=== PATIENT | female | born 1975 | race Caucasian/White ===

== ENCOUNTER 2018-01-11 09:52 | Emergency (ER) | payer OTHER ==
[~2018-01-11] VITALS: Ht 157.5 cm; Wt 53.6 kg
[~2018-01-11 09:52] MED LIST: KLONOPIN 0.5MG0.5 MG PO; MULTIPLE VITAMI1 CAP PO; NORCO 325 MG-51 TAB PO; ZOLOFT 25MG25 MG PO
[2018-01-11 10:09] VITALS: BP 131/66; TEMP 99.1
[2018-01-11] MEDS ORDERED: PREDNISONE20 MG PO (11:32)
[2018-01-11] MEDS ORDERED: ZITHROMAX Z PA250 MG PO (11:32)
[2018-01-11 11:44] VITALS: PULSE 98
== END 2018-01-11 11:49 | disposition home or self-care (01) ==
LOC: COL.ER 09:52
DX: J40 Bronchitis, not specified as acute or chronic (principal); J98.01 Acute bronchospasm; D50.9 Iron deficiency anemia, unspecified; F17.210 Nicotine dependence, cigarettes, uncomplicated; Z79.891 Long term (current) use of opiate analgesic

== ENCOUNTER 2018-02-01 16:21 | Emergency (ER) | payer OTHER ==
[~2018-02-01] VITALS: Ht 157.5 cm; Wt 53.6 kg
[~2018-02-01 16:21] MED LIST changes: +PREDNISONE20 MG PO; +ZITHROMAX Z PA250 MG PO
[2018-02-01 16:36] VITALS: BP 115/59; TEMP 98.8
[2018-02-01 17:34] LABS: BASO % 0.8 % (0.0-2.0); EOS # 0.1 (0.0-0.7); GRAN # 3.4 (1.4-6.5); GRAN % 66.9 % (42.2-75.2); HEMATOCRIT 38.5 % (37.0-47.0); HEMOGLOBIN 12.4 g/dl (12.5-16.0); LYMPH # 1.2 (1.2-3.4); LYMPH % 24.4 % (20.0-51.0); MEAN CELL VOLUME 81 fl (80.0-100.0); MEAN CORPUSCULAR HEMOGLOBIN 26 pg (27.0-31.0); MEAN CORPUSCULAR HGB CONC 32 g/dl (33.0-37.0); MEAN PLATELET VOLUME 9.5 fl (7.4-10.4); MONO # 0.3 (0.1-0.6); MONO % 6.7 % (1.7-9.3); PLATELET COUNT 352 K/mm3 (130-400); RED BLOOD COUNT 4.73 M/mm3 (4.10-5.30)
[2018-02-01 17:46] LABS: COLLECTION METHOD CLEAN CATCH
[2018-02-01 17:46] LABS: ALBUMIN 4.6 gm/dL (3.5-5.0); BILIRUBIN,TOTAL 0.5 mg/dL (0.0-1.0); CALCIUM 9.6 mg/dL (8.4-10.2); CREATININE, serum 0.69 mg/dL (0.52-1.25); POTASSIUM 4.2 mmol/L (3.4-5.0); TOTAL PROTEIN 8.1 gm/dL (6.4-8.2)
[2018-02-01 17:51] LABS: PH 6 (5-8); SQUAMOUS EPITHELIAL 0-2 /hpf; URINE APPEARANCE Clear; URINE BACTERIA None Seen /hpf; URINE BILIRUBIN Negative (NEGATIVE); URINE BLOOD Negative (NEGATIVE); URINE COLOR Yellow; URINE GLUCOSE Negative (NEGATIVE); URINE KETONE Negative (NEGATIVE); URINE LEUKOCYTE ESTERASE Negative (NEGATIVE); URINE NITRATE Negative (NEGATIVE); URINE PROTEIN(semi-quant) Negative (NEGATIVE); URINE RBC 0-2 /hpf; URINE UROBILINOGEN Negative (NEGATIVE)
[2018-02-01 18:15] LABS: TSH w REFLEX 1.39 uIU/mL (0.465-4.680)
[2018-02-01] MEDS ORDERED: KLONOPIN 0.5MG0.5 MG PO (18:25)
[2018-02-01] MEDS ORDERED: ANTIVERT 25MG25 MG PO (18:51)
[2018-02-01] MEDS ORDERED: ZOFRAN ODT4 MG PO (18:51)
[2018-02-01 19:37] VITALS: PULSE 66
== END 2018-02-01 19:37 | disposition home or self-care (01) ==
LOC: COL.ER 16:21
PROVIDERS: Physician Assistant
DX: R42 Dizziness and giddiness (principal); R11.2 Nausea with vomiting, unspecified; R51 Headache; F41.9 Anxiety disorder, unspecified; F43.10 Post-traumatic stress disorder, unspecified; F17.210 Nicotine dependence, cigarettes, uncomplicated; Z98.890 Other specified postprocedural states; Z98.51 Tubal ligation status
CPT/HCPCS: J1885; J7030

== ENCOUNTER 2018-02-02 05:44 | Emergency (ER) | payer OTHER ==
[~2018-02-02] VITALS: Ht 157.5 cm; Wt 53.6 kg
[~2018-02-02 05:44] MED LIST changes: +ANTIVERT 25MG25 MG PO; +ZOFRAN ODT4 MG PO
[2018-02-02 05:52] VITALS: TEMP 98.6
[2018-02-02 08:00] VITALS: BP 96/71; PULSE 65
== END 2018-02-02 08:07 | disposition home or self-care (01) ==
LOC: COL.ER 05:44
DX: F41.0 Panic disorder [episodic paroxysmal anxiety] (principal); F43.10 Post-traumatic stress disorder, unspecified; F17.210 Nicotine dependence, cigarettes, uncomplicated

== ENCOUNTER 2018-05-15 13:30 | Outpatient (RCR) | payer OTHER | END 2018-07-11 | disposition home or self-care (01) | LOC: WSPT | DX: M25.552 Pain in left hip (principal); Z79.899 Other long term (current) drug therapy ==

== ENCOUNTER 2018-10-12 02:57 | Emergency (ER) | payer OTHER ==
[~2018-10-12] VITALS: Ht 157.5 cm; Wt 50.9 kg
[2018-10-12 03:01] VITALS: TEMP 98.8
[2018-10-12 03:26] LABS: BASO # 0.1 (0.0-0.2); BASO % 0.9 % (0.0-2.0); EOS # 0.1 (0.0-0.7); EOS % 1.2 % (0-4.0); GRAN # 5.6 (1.4-6.5); GRAN % 51.4 % (42.2-75.2); LYMPH # 4.2 (1.2-3.4); LYMPH % 38.9 % (20.0-51.0); MEAN CELL VOLUME 74 fl (80.0-100.0); MEAN CORPUSCULAR HGB CONC 29 g/dl (33.0-37.0); MEAN PLATELET VOLUME 9.6 fl (7.4-10.4); MONO # 0.8 (0.1-0.6); MONO % 7.4 % (1.7-9.3); PLATELET COUNT 470 K/mm3 (130-400); REDCELL DISTRIBUTION WIDTH-CV 15.3 % (11.5-14.5)
[2018-10-12 03:30] LABS: HEMATOCRIT 33.2 % (37.0-47.0); HEMOGLOBIN 9.7 g/dl (12.5-16.0); MEAN CORPUSCULAR HEMOGLOBIN 22 pg (27.0-31.0)
[2018-10-12 03:45] LABS: ALANINE AMINOTRANSFERASE 20 U/L (9-52); ALBUMIN 4.7 gm/dL (3.5-5.0); ALKALINE PHOSPHATASE 61 U/L (50-136); ANION GAP 13 mmol/L (7-16); AST,SGOT 37 U/L (15-37); BILIRUBIN,TOTAL 0.3 mg/dL (0.0-1.0); BLOOD UREA NITROGEN 12 mg/dL (7-17); CALCIUM 10.6 mg/dL (8.4-10.2); CARBON DIOXIDE 22 mmol/L (22-30); CHLORIDE 107 mmol/L (98-107); CREATININE, serum 0.67 (0.52-1.25); GLUCOSE 97 mg/dL (74-106); LIPASE 179 U/L (23-300); POTASSIUM 3.9 mmol/L (3.4-5.0); SODIUM 142 mmol/L (137-145); TOTAL PROTEIN 8.5 gm/dL (6.4-8.2)
[2018-10-12 04:24] LABS: TROPONIN-I < 0.012 ng/mL (0.000-0.035)
[2018-10-12 06:30] VITALS: BP 111/72; PULSE 74
[2018-10-12] MEDS ORDERED: FLEXERIL 1010 MG/TAB PO (06:36)
== END 2018-10-12 06:58 | disposition home or self-care (01) ==
LOC: COL.ER 02:57
PROVIDERS: Emergency Medicine
DX: R07.89 Other chest pain (principal); F41.9 Anxiety disorder, unspecified; F17.210 Nicotine dependence, cigarettes, uncomplicated; Z98.890 Other specified postprocedural states
CPT/HCPCS: C9113; J1885; J2060; J2405; J7030

== ENCOUNTER 2020-12-24 18:48 | Emergency (ER) | payer OTHER ==
[~2020-12-24] VITALS: Ht 154.9 cm; Wt 54.5 kg
[~2020-12-24 18:48] MED LIST changes: +FLEXERIL 1010 MG/TAB PO
[2020-12-24 19:51] LABS: BASO # 0.1 (0.0-0.2); BASO % 0.8 % (0.0-2.0); EOS # 0.1 (0.0-0.7); EOS % 1.1 % (0-4.0); GRAN # 4.1 (1.4-6.5); GRAN % 63.1 % (42.2-75.2); HEMATOCRIT 40.7 % (37.0-47.0); HEMOGLOBIN 12.7 g/dl (12.5-16.0); LYMPH # 1.8 (1.2-3.4); LYMPH % 27.3 % (20.0-51.0); MEAN CELL VOLUME 84 fl (80.0-100.0); MEAN CORPUSCULAR HEMOGLOBIN 26 pg (27.0-31.0); MEAN CORPUSCULAR HGB CONC 31 g/dl (33.0-37.0); MEAN PLATELET VOLUME 9.4 fl (7.4-10.4); MONO # 0.5 (0.1-0.6); MONO % 7.5 % (1.7-9.3); PLATELET COUNT 348 K/mm3 (130-400); RED BLOOD COUNT 4.86 M/mm3 (4.10-5.30)
[2020-12-24 20:02] LABS: ALANINE AMINOTRANSFERASE 38 U/L (4-34); ALBUMIN 4.7 gm/dL (3.5-5.0); ALKALINE PHOSPHATASE 53 U/L (50-136); ANION GAP 9 mmol/L (7-16); AST,SGOT 37 U/L (15-37); BILIRUBIN,TOTAL 0.3 mg/dL (0.0-1.0); BLOOD UREA NITROGEN 15 mg/dL (7-17); CALCIUM 10.4 mg/dL (8.4-10.2); CARBON DIOXIDE 26 mmol/L (22-30); CHLORIDE 104 mmol/L (98-107); CREATININE, serum 0.95 (0.52-1.25); GLUCOSE 112 mg/dL (74-106); POTASSIUM 3.5 mmol/L (3.4-5.0); SODIUM 139 mmol/L (137-145); TOTAL PROTEIN 8.3 gm/dL (6.4-8.2)
[2020-12-24 20:47] LABS: TROPONIN-I < 0.012 ng/mL (0.000-0.035)
[2020-12-24 23:57] VITALS: BP 131/82; PULSE 83; TEMP 98.7
== END 2020-12-24 23:57 | disposition home or self-care (01) ==
LOC: COL.ER 18:48
PROVIDERS: Emergency Medicine
DX: R07.2 Precordial pain (principal); F41.0 Panic disorder [episodic paroxysmal anxiety]; Z79.899 Other long term (current) drug therapy
CPT/HCPCS: J7030

== ENCOUNTER → 2021-02-24 | Outpatient (CLI) | payer OTHER | LOC: MC.RAD 14:00 | DX: N60.02 Solitary cyst of left breast (principal) ==

== ENCOUNTER → 2022-10-03 | Outpatient (CLI) | payer OTHER | LOC: MC.RAD 13:43 | DX: Z12.31 Encounter for screening mammogram for malignant neoplasm of breast (principal); N64.9 Disorder of breast, unspecified ==

== ENCOUNTER → 2022-10-09 | Outpatient (CLI) | payer OTHER | LOC: MC.RAD 13:53 | DX: N60.02 Solitary cyst of left breast (principal) ==

== ENCOUNTER → 2024-01-02 | Outpatient (CLI) | payer OTHER | LOC: MC.RAD 10:09 | DX: Z12.31 Encounter for screening mammogram for malignant neoplasm of breast (principal); N63.20 Unspecified lump in the left breast, unspecified quadrant ==